=== PATIENT | female | born 1965 | race Caucasian/White ===

== ENCOUNTER → 2016-07-13 | Outpatient (CLI) | payer OTHER, SELFPAY ==
[~2016-07-13] MED LIST: ELIQUIS 2.5 MG2.5 MG PO; ETODOLAC500 MG PO; FLEXERIL 10 MG10 MG PO; HYDROCODON-ACE1 EAC2 PO; LEVOXYL25 MCG PO; NORCO 10-325 T1 EACH PO; NORCO 5-325 TA1 EACH PO; PROTONIX 40 MG40 M1 PO; VIBRAMYCIN 100100 MG PO; XARELTO10 MG PO; ZOFRAN4 MG PO
[2016-07-13 17:14] LABS: HEMOGLOBIN 15.4 gm/dl (12.3-15.3); RED BLOOD COUNT 5.05 M/UL (4.00-5.10); WHITE BLOOD COUNT 10.8 K/UL (4.5-11.0)
== END ==
LOC: LAB 16:36
PROVIDERS: Nurse Practitioner
DX: M25.562 Pain in left knee (principal)
CPT/HCPCS: 36415; 85027; 86140

== ENCOUNTER → 2016-07-17 | Outpatient (CLI) | payer OTHER, SELFPAY ==
[~2016-07-17] VITALS: Ht 170.2 cm; Wt 102.0 kg
== END ==
LOC: OPSV 10:36
DX: R79.82 Elevated C-reactive protein (CRP) (principal); Z88.5 Allergy status to narcotic agent
CPT/HCPCS: 96365; J0875; J7070

== ENCOUNTER → 2016-07-20 | Outpatient (CLI) | payer OTHER ==
[2016-07-20 15:31] LABS: HEMOGLOBIN 14.8 gm/dl (12.3-15.3); RED BLOOD COUNT 4.83 M/UL (4.00-5.10); WHITE BLOOD COUNT 9.8 K/UL (4.5-11.0)
== END ==
LOC: LAB 14:49
PROVIDERS: Nurse Practitioner
DX: L03.119 Cellulitis of unspecified part of limb (principal); Z88.5 Allergy status to narcotic agent
CPT/HCPCS: 36415; 85027; 86140

== ENCOUNTER → 2016-08-04 | Outpatient (CLI) | payer OTHER ==
[~2016-08-04] VITALS: Ht 170.2 cm; Wt 102.1 kg
== END ==
LOC: OPSV 11:00
DX: L03.90 Cellulitis, unspecified (principal)
CPT/HCPCS: 96365; J0875; J7070

== ENCOUNTER → 2016-08-22 | Outpatient (CLI) | payer OTHER ==
[2016-08-22 11:49] LABS: HEMOGLOBIN 15.1 gm/dl (12.3-15.3); RED BLOOD COUNT 4.93 M/UL (4.00-5.10); WHITE BLOOD COUNT 8.5 K/UL (4.5-11.0)
[2016-08-22 12:07] LABS: BUN/CREATININE RATIO 17 (0-10)
== END ==
LOC: OPSV2 10:26
PROVIDERS: Orthopaedic Surgery
DX: Z01.812 Encounter for preprocedural laboratory examination (principal); M23.6 Other spontaneous disruption of ligament(s) of knee; Z96.659 Presence of unspecified artificial knee joint; Z88.5 Allergy status to narcotic agent
CPT/HCPCS: 36415; 80048; 81001; 85025; 87077; 87086; 87186

== ENCOUNTER → 2016-08-24 | Outpatient (CLI) | payer OTHER ==
[2016-08-24 15:29] LABS: BUN/CREATININE RATIO 16 (0-10)
== END ==
LOC: LAB 13:55
PROVIDERS: Orthopaedic Surgery
DX: Z01.812 Encounter for preprocedural laboratory examination (principal)
CPT/HCPCS: 36415; 80048; 86850; 86870; 86880; 86900; 86901; 86920; 86922

== ENCOUNTER 2016-08-25 05:45 | Day surgery (SDC) | payer OTHER, SELFPAY ==
[~2016-08-25] VITALS: Ht 170.2 cm; Wt 128.8 kg
[~2016-08-25 05:45] MED LIST changes: -ELIQUIS 2.5 MG2.5 MG PO; -ETODOLAC500 MG PO; -HYDROCODON-ACE1 EAC2 PO; -LEVOXYL25 MCG PO; -NORCO 5-325 TA1 EACH PO; -VIBRAMYCIN 100100 MG PO; -ZOFRAN4 MG PO
[2016-08-25] MEDS ORDERED: LEVOXYL25 MCG PO (06:47)
[2016-08-25] MEDS ORDERED: ETODOLAC500 MG PO (06:48)
[2016-08-25] MEDS ORDERED: VIBRAMYCIN 100100 MG PO (16:24)
[2016-08-25] MEDS ORDERED: ZOFRAN4 MG PO (16:25)
[2016-08-25] MEDS ORDERED: NORCO 5-325 TA1 EACH PO (16:25)
== END 2016-08-25 16:51 | disposition home or self-care (01) ==
LOC: UNDOADMIN 05:45 → OR 05:45 → ZOBSOF 05:45 → EDSTATUS 08:15 → OR 16:51 → ZOBSOF 08-28 08:58 → OR 08-28 08:58
DX: M23.52 Chronic instability of knee, left knee (principal); K21.9 Gastro-esophageal reflux disease without esophagitis; E66.9 Obesity, unspecified; G89.29 Other chronic pain; M19.90 Unspecified osteoarthritis, unspecified site; M54.9 Dorsalgia, unspecified; Z88.6 Allergy status to analgesic agent; Z79.899 Other long term (current) drug therapy; Z90.710 Acquired absence of both cervix and uterus; Z98.41 Cataract extraction status, right eye; Z98.42 Cataract extraction status, left eye; Z98.890 Other specified postprocedural states; Z53.9 Procedure and treatment not carried out, unspecified reason
CPT/HCPCS: 0; J0171; J0690; J2250; J2795; J3010; J7120

== ENCOUNTER → 2016-08-28 | Outpatient (CLI) | payer OTHER ==
[~2016-08-28] VITALS: Ht 170.2 cm; Wt 102.1 kg
[~2016-08-28] MED LIST changes: +ELIQUIS 2.5 MG2.5 MG PO; +ETODOLAC500 MG PO; +HYDROCODON-ACE1 EAC2 PO; +LEVOXYL25 MCG PO; +NORCO 5-325 TA1 EACH PO; +VIBRAMYCIN 100100 MG PO; +ZOFRAN4 MG PO
== END ==
LOC: OPSV 09:53
DX: L03.116 Cellulitis of left lower limb (principal)
CPT/HCPCS: 96365; J0875; J7070

== ENCOUNTER → 2016-08-31 | Outpatient (CLI) | payer OTHER ==
[2016-08-31 13:28] LABS: BUN/CREATININE RATIO 17 (0-10)
== END ==
LOC: LAB 11:45
PROVIDERS: Orthopaedic Surgery
DX: N39.0 Urinary tract infection, site not specified (principal)
CPT/HCPCS: 36415; 80048; 81001; 86850; 86900; 86901; J7120

== ENCOUNTER 2016-09-01 05:49 | Inpatient (IN) | payer OTHER ==
[~2016-09-01] VITALS: Ht 170.2 cm; Wt 124.7 kg
[~2016-09-01 05:49] MED LIST changes: -ELIQUIS 2.5 MG2.5 MG PO; -HYDROCODON-ACE1 EAC2 PO
[2016-09-02 06:42] LABS: BUN/CREATININE RATIO 15 (0-10)
[2016-09-02 06:58] LABS: HEMOGLOBIN 11.6 gm/dl (12.3-15.3); RED BLOOD COUNT 3.81 M/UL (4.00-5.10); WHITE BLOOD COUNT 10.7 K/UL (4.5-11.0)
[2016-09-03 06:41] LABS: RED BLOOD COUNT 3.61 M/UL (4.00-5.10)
[2016-09-03 06:48] LABS: WHITE BLOOD COUNT 13.5 K/UL (4.5-11.0)
[2016-09-03 06:53] LABS: BUN/CREATININE RATIO 17 (0-10)
[2016-09-04 06:03] LABS: HEMOGLOBIN 10.1 gm/dl (12.3-15.3); RED BLOOD COUNT 3.35 M/UL (4.00-5.10); WHITE BLOOD COUNT 11.6 K/UL (4.5-11.0)
[2016-09-04 06:18] LABS: BUN/CREATININE RATIO 20 (0-10)
[2016-09-04] MEDS ORDERED: ELIQUIS 2.5 MG2.5 MG PO (11:29)
[2016-09-05] MEDS ORDERED: HYDROCODON-ACE1 EAC2 PO (10:59)
[2016-09-06] MEDS ORDERED: FLEXERIL 10 MG10 MG PO (13:36)
== END 2016-09-06 15:05 | disposition home health service (06) | DRG 467 ==
LOC: ZOBSOF 05:49 → M/S 18:10
PROVIDERS: ADMIT Orthopaedic Surgery
PROC: 0SRD0J9 Replacement of Left Knee Joint with Synthetic Substitute, Cemented, Open Approach (ICD-10-PCS; principal; 2016-09-01 08:15)
PROC: 0SPU0JZ Removal of Synthetic Substitute from Left Knee Joint, Femoral Surface, Open Approach (ICD-10-PCS; principal; 2016-09-01 08:15)
PROC: 0SPD0JC Removal of Synthetic Substitute from Left Knee Joint, Patellar Surface, Open Approach (ICD-10-PCS; principal; 2016-09-01 08:15)
DX: T84.023A Instability of internal left knee prosthesis, initial encounter (principal); D62 Acute posthemorrhagic anemia; E03.9 Hypothyroidism, unspecified; E66.01 Morbid (severe) obesity due to excess calories; M23.612 Other spontaneous disruption of anterior cruciate ligament of left knee; M23.8X2 Other internal derangements of left knee; Y84.2 Radiological procedure and radiotherapy as the cause of abnormal reaction of the patient, or of later complication, without mention of misadventure at the time of the procedure; Y92.89 Other specified places as the place of occurrence of the external cause; Y93.89 Activity, other specified; Z86.19 Personal history of other infectious and parasitic diseases
CPT/HCPCS: 36415; 71010; 73560; 80048; 83036; 84443; 85027; 87070; 87205; 97110; 97116; 97530; 97535; C1751; J0690; J1100; J2250; J2270; J2405; J2710; J2795; J3010; J3370; J7120

== ENCOUNTER 2017-01-25 10:16 | Emergency (ER) | payer OTHER ==
[~2017-01-25 10:16] MED LIST changes: +ELIQUIS 2.5 MG2.5 MG PO; +HYDROCODON-ACE1 EAC2 PO
[2017-01-25 11:46] LABS: HEMOGLOBIN 13.5 gm/dl (12.3-15.3); RED BLOOD COUNT 4.6 M/UL (4.00-5.10); WHITE BLOOD COUNT 7.8 K/UL (4.5-11.0)
[2017-01-25 12:05] LABS: BUN/CREATININE RATIO 15 (0-10)
== END 2017-01-25 20:21 | disposition home or self-care (01) ==
LOC: ER1 10:16
PROVIDERS: Emergency Medicine
DX: B02.9 Zoster without complications (principal); R10.12 Left upper quadrant pain; R11.2 Nausea with vomiting, unspecified; Z90.49 Acquired absence of other specified parts of digestive tract; Z98.890 Other specified postprocedural states
CPT/HCPCS: 36415; 76830; 80053; 81001; 83690; 84484; 84703; 85025; 87210; 93005; 96361; 96374; 96375; 96376; 99284; J1885; J2405; J7030; J7050; Q9962